=== PATIENT | male | born 1965 | race Caucasian/White ===

== ENCOUNTER 2016-08-20 06:02 | Day surgery (SDC) | payer OTHER ==
[~2016-08-20] VITALS: Ht 167.6 cm; Wt 77.0 kg
[2016-08-20 06:47] VITALS: Ht 167.6 cm; Wt 77.0 kg
[2016-08-20] MEDS ORDERED: NO MEDS. (06:50)
[2016-08-20 06:58] VITALS: BP 110/75; PULSE 60; RESP 16
[2016-08-20] MEDS ORDERED: MIDAZOLAM 1 MG/ML 2 ML INJ ONE ×2 (08:23→08:24)
[2016-08-20] MEDS ORDERED: FENTAnyl 50 MCG/ML VIAL ONE (08:24)
[2016-08-20 08:41] VITALS: BP 93/67; RESP 20
--- NOTE | 2016-08-21 07:57 | GILP ---
DATE OF PROCEDURE: NAME OF PROCEDURE: Colonoscopy. SURGEON: Jailene Barnes MD PREOPERATIVE DIAGNOSIS: Screening colonoscopy. POSTOPERATIVE DIAGNOSES: 1. Colonoscopy all the way to the cecum. 2. Internal hemorrhoids. 3. No colon neoplasm was identified. INDICATION FOR THE PROCEDURE: Mr. Oleg Novoa is a 51-year-old male patient who was schedul ed for screening colonoscopy. The procedure and possible complications were well explained to the patient. He understood and conse nted to the procedure. DESCRIPTION OF PROCEDURE: Under the influence of fentanyl and Versed, the colonoscope was carefully introduced in the rectum and under direct vision it was advanced all the way to the cecum. FINDINGS: The patient had internal hemorrhoids. No colitis or neoplasm was identified. He tolerated the procedure very well and there was no complication from the procedure. At the end o f the procedure, he was awake with stable vital signs and he was discharged home to the care of his family. IMPRESSION: 1. Colonoscopy all the way to the cecum. 2. Internal hemorrhoids. 3. No colon neoplasm was identified. PLAN: Next screening colonoscopy in 10 years. Dictated By: JAILENE CARRANZA/JAY Conf#: [id number] DID#: [id number]
== END 2016-08-20 08:56 | disposition home or self-care (01) ==
LOC: GIL 06:02
PROVIDERS: ATTEND Internal Medicine Gastroenterology
DX: Z12.11 Encounter for screening for malignant neoplasm of colon (principal); K64.8 Other hemorrhoids
CPT/HCPCS: 45378; J2250; J3010; Z7610